=== PATIENT | female | born 1960 | race Caucasian/White ===

== ENCOUNTER 2018-07-27 06:25 | Day surgery (SDC) | payer OTHER, MEDICAID ==
[2018-07-27] MEDS ORDERED: SEVOFLURANE 15 MIN (07:00)
[2018-07-27] MEDS ORDERED: CEFAZOLIN 1 GM INJ (07:00)
[2018-07-27] MEDS ORDERED: OXYCODONE/ACETAMINOPHEN (5/325) TAB PO (09:30)
[2018-07-27] MEDS ORDERED: DIPHENHYDRAMINE 50 MG INJ IV (09:30)
[2018-07-27] MEDS ORDERED: ONDANSETRON 4 MG INJ IV (09:30)
[2018-07-27] MEDS ORDERED: FENTAnyl 50 MCG/ML VIAL IV (09:30)
[2018-07-27] MEDS ORDERED: hydrALAzine 20 MG INJ IV (09:30)
[2018-07-27] MEDS ORDERED: LABETALOL HCL 20MG INJ IV (09:30)
[2018-07-27] MEDS ORDERED: PROCHLORPERAZINE 10 MG INJ IV (09:30)
[2018-07-27] MEDS ORDERED: MEPERIDINE 25 MG INJ IV (09:30)
[2018-07-27] MEDS ORDERED: HYDROmorphONE 1 MG/5 ML IV SYRINGE IV ×2 (09:30)
[2018-07-27] MEDS ORDERED: FENTAnyl 50 MCG/ML VIAL (09:35)
[2018-07-27] MEDS ORDERED: LIDOCAINE 2% (SDV) 5 ML INJ (09:35)
[2018-07-27] MEDS ORDERED: PROPOFOL 20 ML (09:35)
[2018-07-27] MEDS ORDERED: MIDAZOLAM 1 MG/ML 2 ML INJ (09:35)
[2018-07-27] MEDS ORDERED: DEXAMETHASONE 4 MG/ML 5 ML INJ (09:44)
[2018-07-27] MEDS ORDERED: ONDANSETRON 4 MG INJ (09:44)
[2018-07-27] MEDS ORDERED: FAMOTIDINE 20 MG INJ (09:45)
[2018-07-27] MEDS ORDERED: EPHEDrine 50 MG INJ (10:01)
[2018-07-27] MEDS ORDERED: ACETAMINOPHEN 325 MG TAB PO (10:30)
[2018-07-27] MEDS: HYDROmorphONE 1 MG/5 ML IV SYRINGE IV (10:58)
== END 2018-07-27 12:30 | disposition home or self-care (01) ==
LOC: SDS 06:25
DX: N95.0 Postmenopausal bleeding (principal); N88.8 Other specified noninflammatory disorders of cervix uteri
CPT/HCPCS: 58558; 84702; 86850; 86900; 86901; 88305

== ENCOUNTER 2018-10-14 12:14 | Emergency (ER) | payer OTHER ==
[2018-10-14] MEDS: IBUPROFEN 600 MG TAB PO (14:01)
== END 2018-10-14 16:07 | disposition home or self-care (01) ==
LOC: FTE 12:14
DX: S89.91XA Unspecified injury of right lower leg, initial encounter (principal); W18.39XA Other fall on same level, initial encounter; Y92.9 Unspecified place or not applicable
CPT/HCPCS: 29515; 73562; 73590; 99283-25

== ENCOUNTER 2019-02-15 08:13 | Emergency (ER) | payer OTHER ==
[2019-02-15] MEDS: LIDOCAINE 1% (MPF) 5 ML VIAL INJ (08:41)
== END 2019-02-15 09:45 | disposition home or self-care (01) ==
LOC: FTE 09:45
DX: L60.0 Ingrowing nail (principal); I10 Essential (primary) hypertension
CPT/HCPCS: 11750; 99283-25